=== PATIENT | male | born 1950 | race Caucasian/White ===

== ENCOUNTER 2017-08-04 11:25 | Emergency (ER) | payer MEDICARE, OTHER ==
[~2017-08-04] VITALS: Ht 177.8 cm; Wt 81.6 kg
[~2017-08-04 11:25] MED LIST: ALBUTEROL-200 PUFFS/ IH; AMLODIPINE10 MG PO; ASPIRIN325 M1 PO; BAYER ASPIRIN C81 MG PO; BAYER BACK AND BODY OR; CARVEDILOL 1212.5 MG PO; DUCODYL5 MG PO; ERYTHROMYC3.5 GM/TUB OP; FUROSEMIDE40 MG PO; GABAPENTIN300 MG PO; HYDROCHLOROTHIA25 M1 PO; IMDUR 30MG. TAB30 MG PO; KEFLEX 500MG.500 MG PO; LIPITOR40 MG PO; LIPITOR80 MG PO; LISINOPRIL 5MG T5 MG PO; LISINOPRIL10 MG PO; LISINOPRIL40 MG PO; LOPERAMIDE2 M2 PO; LORATADINE 10MG10 M1 PO; METFORMIN 500M500 M1 PO; METOPROLOL 25 M25 MG PO; NAPROSYN250 M1 PO; NICODERM C21 MG/24 H TD; NICOTINE21 MG/24 H TD; OMEPRAZOLE DR20 MG PO; OXYGEN IH; POTASSIUM CHLO10 ME3 PO; PREDNISONE 20MG20 MG PO; PROVENTIL0.09 MG/A1 IH; SERTRALINE100 M1 PO; SLO NIACIN500 MG PO; SPIRIVA18 MCG IH; SYMBICORT1 AE1 IH; TIOTROPIUM BRO18 MCG IH; TOPIRAMATE 100100 M1 PO
--- NOTE | 2017-08-04 11:42 | Emergency Room Report ---
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 N Clinical Suspician of Infection? N Mental Status: 2 - Mildly Altered Sepsis Risk:Low Sepsis Risk Have you (or family members/close friends) recently traveled outside the [place]? N If Yes, where/when: Have you had exposure to infectious disease within the past month? N TB? Other? Specify: Pt with hx SDH, hx of tremors, with reports of progressive tremulousness the last few days. He told EMS his birthdate and name. [facility] is [facility]. ALLERGIES Coded Allergies: No Known Allergies (11/22/15) Home Medications Active Scripts Device (Oxygen (Concentrator)) 1 UNIT IH CONSTANT #1 Ref 5 Prov: 03/07/16 Carvedilol (Carvedilol 12.5MG) 12.5 MG PO BID #120 TAB Prov: 11/23/15 Reported Medications POTASSIUM CHL (Potassium Chloride) 20 MEQ PO DAILY LISINOPRIL (Lisinopril) 5 MG PO DAILY Atorvastatin Calcium (Atorvastatin) 40 MG PO DAILY History Medical History General CAD? Yes Angina: Yes [place]: No Hypertension? Yes Hyperlipidemia? Yes CHF? Yes DVT? No PE? No COPD? Yes Asthma? No Anemia? No GERD? No Gastric ulcers? No GI Bleed? No Hernia? No Thyroid Problems? No Hypothyroidism? No CVA? Yes Seizures? Yes Diabetes? Yes Insulin Dependent: No Insulin Pump: No Home FSBS? No Renal Insuffiency? No End Stage Renal Disease? No UTI? No Stones? No BPH? No GB Disease: No Nephritic Syndrome? No Asplenia? No Hepatitis? No Sickle Cell Disease? No Arthritis? No Migraines? No Cataracts? No Glaucoma? No MRSA? No HIV? No TB? No Anxiety? No Depression? No Cancer? Yes Site: melanoma - shoulder More? No Immunization Hx DT/Tetanus Unknown Flu Refused Pneumonia Refuses Surgical Hx Previous Surgery?Y OPEN HEART HERNIA REPAIR KNEE SX BOTH LEGS HEART CATH OPEN HEART SX Family History Family Hx Diabetes No CAD No Hypertension No Hyperlipidemia No Cancer No TB No Social History Smoking Hx Smoker: Never Smoker Tobacco: No Packs/day < 1 Pack Alcohol Alcohol: No Review of Systems All Other Systems Reviewed and Negative Psychiatric/Neurological see HPI Physical Exam Vital Signs Vital Signs Date Time Temp Pulse Resp B/P Pulse O2 O2 Flow FiO2 Ox Delivery Rate 08/04 1529 98.5 75 16 107/60 94 2 08/04 1526 98.5 75 16 107/60 94 11 1415 60 16 111/62 94 08/04 1257 64 16 106/60 94 2 08/04 1127 98.5 73 16 106/79 94 2 General Appearance normal appearance, WD/WN, no apparent distress (tremulous) Eye Exam - bilateral eye normal exam, bilateral eye PERRL, bilateral eye EOMI Neck normal inspection, non-tender, supple, full range of motion Respiratory Status Yes: trachea midline, chest symmetrical, non tender chest. No: respiratory distress, tender on palpation, use of accessory muscles, pain on inspiration, pain on expiration, productive cough, non productive cough. Lung Sounds bilateral: normal breath sounds, lungs clear. Cardiovascular normal exam, regular rate/rhythm, no peripheral edema, no gallop, no JVD, no murmur, no rub, normal peripheral pulses Gastrointestinal normal bowel sounds, normal exam, non tender, soft, no pulsatile mass, no guarding, no rebound Extremities non-tender, normal range of motion, normal inspection, normal capillary refill, no calf tenderness, no pedal edema Strength 5 Upper Ext (L), 5 Upper Ext (R), 5 Lower Ext (L), 5 Lower Ext (R) Neurologic alert, speech clear and fluent; nonfocal exam; answers questions appropriately; is tremulous. Knows his name but cannot tell where he is nor what day or year it is. Glascow Coma Scale Glascow Coma Scale Response Value EYE response: 4 Spontaneously 4 MOTOR response: 6 OBEYS 6 VERBAL response: 5 Oriented & Converses 5 Total 15 Skin intact, normal color, warm/dry Lymphatic no adenopathy Medical Decision Making LABS/Meds/Orders Pt receiving controlled substance in ED? No Results/Orders Laboratory Tests 08/04/17 1245: ABG pH 7.27 L, ABG pCO2 (Temp Corrct 86.4 H, ABG pO2 (Temp Correct 79.9 L, ABG HCO3 38.3 H, ABG Total CO2 41.0 H, ABG O2 Sat (Calculated) 94.7, ABG Base Excess 11.4 H, Serg Test ACCEPTABLE, Blood Gas Comments LEFT RADIAL 08/04/17 1135: Lactic Acid 0.6, Ammonia 29 08/04/17 1135: Sodium 149 H, Potassium 3.8, Chloride 107, Carbon Dioxide 38 H, BUN 23 H, Creatinine 1.7 H, Estimated Creat Clear 50, Estimated GFR (MDRD) 41, Glucose 114 H, Calcium 7.8 L, Total Bilirubin 0.3, AST 7 L, ALT 8 L, Alkaline Phosphatase 89, Creatine Kinase 53, CK-MB (CK-2) Rel Index 1.1, CK and CKMB Interp 0.6, Troponin I 0.03, Total Protein 6.7, Albumin 3.5, Globulin 3.2, Albumin/Globulin Ratio 1.1, PT 12.3 H, INR 1.14 H, APTT 26.1, WBC 8.2, RBC 4.18 L, Hgb 12.1 L, Hct 38.2 L, MCV 91.3, RDW 15.1, Plt Count 159, MPV 7.9, Gran % 88.2 H, Gran # 7.2, Total Counted 100, Lymphocytes % 6.7 L, Monocytes % 4.4, Eosinophils % 0.4, Basophils % 0.3, Neutrophils 88 H, Lymphocytes (Manual) 8 L, Lymphocytes # 0.6 L, Monocytes (Manual) 4, Monocytes # 0.4, Eosinophils # 0.0, Basophils # 0.0, Platelet Estimate NORMAL, PUBS MCHC 31.8, MCH 29.1 Current Medication Orders Sig/Rainer Start time Last Medication Dose Route Stop Time Status Admin Sodium Chloride 10 ML PRN PRN 08/04 1145 AC IV 08/05 1133 Orders Procedure Date/time Status DIET-NOTHING BY MOUTH 08/04 D Active BIPAP-INITIAL SETUP 08/04 1419 Complete ELECTROCARDIOGRAM REQUEST 08/04 113 Active ARTERIAL BLOOD GAS REQUEST 08/[address] HEAD REQ 08/04 1135 Complete IV SALINE LOCK 08/04 1135 Active CULTURE, BLOOD 08/04 1135 Active URINALYSIS/COMPLETE 08/04 1135 Active PARTIAL THROMBOPLASTIN TIME 08/04 1135 Complete PROTHROMBIN TIME 08/04 1135 Complete LACTIC ACID 08/04 1135 Complete DRUG ABUSE SCREEN (TRIAGE) 08/04 1135 Active DIFFERENTIAL-WBC 08/04 1135 Complete CBC WITH AUTO DIFF 08/04 1135 Complete CARDIAC ENZYMES 08/04 1135 Complete CHEM 12 PROFILE 08/04 1135 Complete AMMONIA 08/04 1135 Complete 12 LEAD EKG-JOSH (INITIAL) 08/04 UNK Active XRAY/CT/US XRAY/CT/US XRAY chest XR interpretation by reviewed by me (report reviewed) Xray Results normal/NAD, no infiltrates, normal heart size, normal lung inflation adalberto CT head CT interpretation by reviewed by me (report reviewed) Time results known: 1244 CT Results normal/NAD, no infiltrates (neg acute) Consult MD Physician Consult Consult/PCP Dr. Elias 1428 with [place] Time Called 1301 Reason Transfer to facility, Respiratory eval/care Progress ED Progress Notes 1 Date 08/04/17 Comment Patient retaining C02 as noted on ABG, worse than prior; BiPap ordered and [facility] hospital consulted. ED Progress Notes 2 Date 08/04/17 Time 1418 Comment Patient sensorium is clearing. He is now more alert, able to answer questions. I am speaking with Dr. Encinas at [facility] regarding potential transfer. ED Progress Notes 3 Date 08/04/17 Time 1529 Comment Son contacted by staff via phone; son gives consent to transfer to [facility]. Patient is more alert at this time and is also consenting to transfer. Departure Departure Time of Disposition 1419 Disposition Still a Patient Clinical Impression Primary Impression: Hypercarbia Secondary Impressions: Mental status change Qualifiers: Altered mental status type: disorientation Qualified Code: R41.0 - Disorientation, unspecified Condition STABLE Referrals NO REFERRAL (PCP) ED Critical Care Critical Care Yes Time spent < 30 min Vital system(s) involved: Respiratory Failure (hypecarbia, mental status chg) I was present at bedside for Coordinating pt's care, Interpreting EKGs/Strips , During my initial exam, Reviewing lab results, Discussing pt condition, For re -examinations, Examining radiographs at 1537
[2017-08-04 11:50] LABS: HEMOGLOBIN 12.1 g/dL (14.1-18.0); LYMPH # 0.6 K/mm3 (0.7-4.5); LYMPH % 6.7 % (10-50)
[2017-08-04 12:06] LABS: NEUTROPHILS 88 % (42-76)
--- NOTE | 2017-08-04 12:30 | RADIOLOGY REPORT PS360 ---
CT HEAD W/O CONTRAST HISTORY: Altered mental status, confusion, altered level of consciousness AMS ORDERING PHYSICIAN: Aliza Hull MD PATIENT AGE: 66 years COMPARISON: 02/18/2017 TECHNIQUE: Axial images obtained without contrast. Brain and bone windows reviewed. FINDINGS: No midline shift, mass effect, intracranial hemorrhage, hydrocephalus, or extra-axial fluid collection is evident. Previously noted subdural hematoma of the left frontal region and falx has resolved The calvarium has an unremarkable appearance. No mastoid effusion. Scattered mucosal thickening of the paranasal sinuses.. IMPRESSION: 1. No acute intracranial findings. 2. Mild sinus disease.
--- NOTE | 2017-08-04 12:33 | RADIOLOGY REPORT PS360 ---
CHEST-AP VIEW ONLY HISTORY: Cough AMS ORDERING PHYSICIAN: Aliza Hull MD PATIENT AGE: 66 years COMPARISON: 02/18/2017 FINDINGS: Prior median sternotomy. No evidence of CHF. There is COPD with hyperinflation and attenuation of the peripheral pulmonary vessels. No lobar consolidation or collapse. No acute bony anomalies. IMPRESSION: COPD, no change with no acute finding.
[2017-08-04 12:50] LABS: ALLEN'S TEST ACCEPTABLE; ARTERIAL ABE 11.4 MMOL/L (-2.4-+2.3); ARTERIAL PO2 79.9 MMHG (80-100); OXYGEN 3 LPM NC
[2017-08-04 15:29] VITALS: BP 107/60
== END 2017-08-04 16:22 | disposition still patient (30) ==
LOC: ER 11:25
PROVIDERS: Emergency Medicine
DX: R06.89 Other abnormalities of breathing (principal); R41.0 Disorientation, unspecified; Z79.899 Other long term (current) drug therapy; I25.10 Atherosclerotic heart disease of native coronary artery without angina pectoris; E78.5 Hyperlipidemia, unspecified; I11.0 Hypertensive heart disease with heart failure; I50.9 Heart failure, unspecified; J44.9 Chronic obstructive pulmonary disease, unspecified; E11.9 Type 2 diabetes mellitus without complications